=== PATIENT | male | born 2000 | race African-American/Black ===

== ENCOUNTER 2021-03-02 12:17 | Emergency (ER) | payer SELFPAY ==
--- NOTE | 2021-03-02 13:06 | EDPHYS ---
Physician Documentation [facility] Name: Hipolito Chase Age: 20 yrs Sex: Male : 2000 Arrival Date: 03/02/2021 Time: 12:24 Bed Waiting Private MD: ED Physician Shahid Vazquez HPI: 03/02 17:01 This 20 yrs old Black Male presents to ER via Ambulatory with complaints of Jaw kb Swelling. 17:04 The patient presents with pain, redness, swelling. The problem is located in the lower kb left first molar (#19). Onset: The symptoms/episode began/occurred yesterday. Duration: The symptoms are continuous. Modifying factors: The symptoms are alleviated by nothing, the symptoms are aggravated by nothing. Associated signs and symptoms: Pertinent positives: pain, redness in area, swelling. Severity of symptoms: At their worst the symptoms were moderate, in the emergency department the symptoms are unchanged. The patient has not experienced similar symptoms in the past. The patient has not recently seen a physician. Historical: - Allergies: 13:07 No Known Allergies; kg - Home Meds: 13:07 None [Active]; kg - PMHx: 13:07 None; kg - PSHx: 13:07 None; kg - Immunization history:: Adult Immunizations not up to date, Client reports having NOT received the Covid vaccine. - Social history:: Smoking status: Patient denies any tobacco usage or history of. Patient uses street drugs, marijuana. ROS: 17:02 Constitutional: Negative for fever, chills, and weight loss. kb 17:02 ENT: Positive for dental pain, swelling to lower left jaw. 17:02 All other systems are negative. Exam: 17:03 Constitutional: This is a well developed, well nourished patient who is awake, alert, kb and in no acute distress. Head/Face: Normocephalic, atraumatic. Respiratory: Respirations even and unlabored. No increased work of breathing, no retractions or nasal flaring. Skin: Warm, dry with normal turgor. Normal color. MS/ Extremity: Pulses equal, no cyanosis. Neurovascular intact. Full, normal range of motion. Neuro: Awake and alert, GCS 15, oriented to person, place, time, and situation. Moves all extremities. Normal gait. Psych: Awake, alert, with orientation to person, place and time. Behavior, mood, and affect are within normal limits. 17:03 ENT: Dental exam: cellulitis, that is mild, specifically in the lower left first molar, gum swelling, that is mild, specifically in the lower left first molar (#19), pain, that is moderate, specifically in the lower left first molar (#19). Vital Signs: 13:03 BP 140 / 99; Pulse 71; Resp 20; Temp 98.8(TE); Pulse Ox 96% on R/A; Weight 63.5 kg (R); kg Height 5 ft. 2 in. (157.48 cm) (R); Pain 3/10; 13:03 Body Mass Index 25.61 (63.50 kg, 157.48 cm) kg MDM: 13:05 Patient medically screened. kb 17:01 Data reviewed: vital signs, nurses notes. Data interpreted: Pulse oximetry: on room air kb is 96 %. Interpretation: normal. Counseling: I had a detailed discussion with the patient and/or guardian regarding: the historical points, exam findings, and any diagnostic results supporting the discharge/admit diagnosis, the need for outpatient follow up, a dentist, to return to the emergency department if symptoms worsen or persist or if there are any questions or concerns that arise at home. Administered Medications: No medications were administered Disposition: 03/03 08:26 Co-signature as Attending Physician, Shahid Vazquez MD I agree with the assessment and niko plan of care. Disposition Summary: 03/02/21 13:06 Discharge Ordered Location: Home kb Condition: Stable kb Diagnosis - Periapical abscess without sinus kb Followup: kb - With: Emergency Department - When: As needed - Reason: Worsening of condition Followup: kb - With: Private Physician - When: 2 - 3 days - Reason: Recheck today's complaints, Continuance of care, Re-evaluation by your physician Discharge Instructions: - Discharge Summary Sheet kb - Dental Pain, [id number] kb - Dental Abscess, [id number] kb Forms: - Medication Reconciliation Form kb - Thank You Letter kb - Antibiotic Education kb - Prescription Opioid Use kb Prescriptions: - Augmentin 875-125 mg Oral Tablet - take 1 tablet by ORAL route every 12 hours for 10 days; 20 tablet; Refills: 0, kb Product Selection Permitted Signatures: Apolonia Perez, STEEL GRINDER-C STEEL GRINDER-Ckb Shahid Vazquez MD MD cha Graham, Kristen, RN RN kg
--- NOTE | 2021-03-02 13:34 | ER ---
Nurse's Notes [facility] Name: Hipolito Chase Age: 20 yrs Sex: Male : 2000 Arrival Date: 03/02/2021 Time: 12:24 Bed Waiting Private MD: Diagnosis: Periapical abscess without sinus Presentation: 03/02 13:03 Chief complaint: Patient states: Left Lower jaw third bottom tooth pain. Coronavirus kg screen: Vaccine status: Patient reports being unvaccinated. Ebola Screen: Patient negative for fever greater than or equal to 101.5 degrees Fahrenheit, and additional compatible Ebola Virus Disease symptoms Patient denies exposure to infectious person. Patient denies travel to an Ebola-affected area in the 21 days before illness onset. Initial Sepsis Screen: Does the patient meet any 2 criteria? No. Patient's initial sepsis screen is negative. Does the patient have a suspected source of infection? No. Patient's initial sepsis screen is negative. Risk Assessment: Do you want to hurt yourself or someone else? Patient reports no desire to harm self or others. Onset of symptoms was March 01, 2021. 13:03 Method Of Arrival: Ambulatory kg 13:03 Acuity: MATTHEW 4 kg Triage Assessment: 13:07 General: Appears in no apparent distress. Behavior is calm, cooperative, appropriate kg for age, quiet. Pain: Complains of pain in lower left first molar. Historical: - Allergies: 13:07 No Known Allergies; kg - Home Meds: 13:07 None [Active]; kg - PMHx: 13:07 None; kg - PSHx: 13:07 None; kg - Immunization history:: Adult Immunizations not up to date, Client reports having NOT received the Covid vaccine. - Social history:: Smoking status: Patient denies any tobacco usage or history of. Patient uses street drugs, marijuana. Screenin:08 Abuse screen: Denies threats or abuse. Denies injuries from another. Nutritional kg screening: No deficits noted. Tuberculosis screening: No symptoms or risk factors identified. Fall Risk None identified. Vital Signs: 13:03 BP 140 / 99; Pulse 71; Resp 20; Temp 98.8(TE); Pulse Ox 96% on R/A; Weight 63.5 kg (R); kg Height 5 ft. 2 in. (157.48 cm) (R); Pain 09/07; 13:03 Body Mass Index 25.61 (63.50 kg, 157.48 cm) kg ED Course: 12:24 Patient arrived in ED. mr 13:05 [facility]. kb 13:05 Shahid Vazquez MD is Attending Physician. kb 13:07 Triage completed. kg 13:07 Arm band placed on right wrist. kg 13:08 Patient has correct armband on for positive identification. kg 13:33 No provider procedures requiring assistance completed. Patient did not have IV access kg during this emergency room visit. Administered Medications: No medications were administered Outcome: 13:06 Discharge ordered by . kb 13:33 Discharged to home ambulatory. kg 13:33 Condition: good 13:33 Discharge instructions given to patient, Instructed on discharge instructions, follow up and referral plans. Demonstrated understanding of instructions, follow-up care, medications, Prescriptions given X 1. 13:34 Patient left the ED. kg Signatures: Apolonia Perez FNP-C FNP-Rosalba Chavez mr StephensSharon, RN RN kg
[2021-03-02 13:40] VITALS: BP 140/99; TEMP 98.8; O2SAT 96
== END 2021-03-02 13:34 | disposition home or self-care (01) ==
LOC: ER 12:17
DX: K04.7 Periapical abscess without sinus (principal)
CPT/HCPCS: 99282

== ENCOUNTER 2021-08-25 20:36 | Emergency (ER) | payer SELFPAY ==
--- NOTE | 2021-08-25 20:53 | ER ---
Nurse's Notes [facility] Name: Hipolito Chase Age: 21 yrs Sex: Male : 2000 Arrival Date: 08/25/2021 Time: 20:38 Bed 20 Private MD: Diagnosis: Unspecified sexually transmitted disease Presentation: 08/25 20:43 Chief complaint: Patient states: "On [place] I basically had too much fun. Im burning when ab2 I pee and I will wake up in the middle of the night to it burning." Pt states he does have white/green/yellow discharge. Coronavirus screen: Vaccine status: Patient reports being unvaccinated. Client denies travel out of the [place] in the last 14 days. At this time, the client does not indicate any symptoms associated with coronavirus-19. Ebola Screen: Patient negative for fever greater than or equal to 101.5 degrees Fahrenheit, and additional compatible Ebola Virus Disease symptoms Patient denies exposure to infectious person. Patient denies travel to an Ebola-affected area in the 21 days before illness onset. No symptoms or risks identified at this time. Initial Sepsis Screen: Does the patient meet any 2 criteria? No. Patient's initial sepsis screen is negative. Does the patient have a suspected source of infection? No. Patient's initial sepsis screen is negative. Risk Assessment: Do you want to hurt yourself or someone else? Patient reports no desire to harm self or others. Onset of symptoms is unknown. 20:43 Method Of Arrival: Ambulatory ab2 20:43 Acuity: MATTHEW 4 ab2 Triage Assessment: 20:49 General: Appears in no apparent distress. comfortable, Behavior is calm, cooperative, ab2 appropriate for age. Pain: Denies pain. Historical: - Allergies: 20:48 No Known Allergies; ab2 - Home Meds: 20:48 None [Active]; ab2 - PMHx: 20:48 None; ab2 - PSHx: 20:48 None; ab2 - Immunization history:: Adult Immunizations up to date. - Social history:: Smoking status: Patient denies any tobacco usage or history of. Patient uses street drugs, marijuana. Screenin:49 Abuse screen: Denies threats or abuse. Denies injuries from another. Nutritional ab2 screening: No deficits noted. Tuberculosis screening: No symptoms or risk factors identified. Fall Risk None identified. Vital Signs: 20:43 BP 148 / 92; Pulse 77; Resp 16; Temp 98.6(TE); Pulse Ox 100% ; Weight 63.5 kg; Height 5 ab2 ft. 3 in. (160.02 cm); Pain 0/10; 21:17 BP 132 / 73 LA Sitting (auto/reg); Pulse 66 MON; Resp 16 S; Temp 97.9; Pulse Ox 100% on sv1 R/A; Pain 0/10; 20:43 Body Mass Index 24.80 (63.50 kg, 160.02 cm) ab2 ED Course: 20:38 Patient arrived in ED. ja2 20:40 Apolonia Perez [facility]C [facility]. kb 20:40 Dionisio Cordova MD is Attending Physician. kb 20:48 Triage completed. ab2 20:49 Arm band placed on right wrist. ab2 20:56 Timmy Nolasco RN is Primary Nurse. sv1 21:17 Patient has correct armband on for positive identification. Bed in low position. Call sv1 light in reach. Side rails up X 1. 21:17 No provider procedures requiring assistance completed. Patient did not have IV access sv1 during this emergency room visit. Administered Medications: 21:00 Drug: Rocephin (cefTRIAXone) 500 mg Route: IM; Site: left deltoid; sv1 21:21 Follow up: Response: No adverse reaction sv1 21:00 Drug: Zithromax (azithromycin) 1 grams Route: PO; sv1 21:20 Follow up: Response: No adverse reaction sv1 Outcome: 20:52 Discharge ordered by . kb 21:17 Discharged to home sv1 21:17 Condition: stable 21:17 Instructed on discharge instructions, follow up and referral plans. 21:22 Patient left the ED. sv1 Signatures: Apolonia Perez FNP-C FNP-Pau Gudino ja2 Timmy Nolasco, ANDRESSA RN sv1 Matheus Nunes ab2
--- NOTE | 2021-08-25 20:53 | EDPHYS ---
Physician Documentation [facility] Name: Hipolito Chase Age: 21 yrs Sex: Male : 2000 Arrival Date: 08/25/2021 Time: 20:38 Bed 20 Private MD: ED Physician Dionisio Cordova HPI: 08/25 20:49 This 21 yrs old Black Male presents to ER via Ambulatory with complaints of STD kb Exposure. 20:49 The patient presents with a possible STD exposure, symptoms include dysuria, green kb penile discharge. Onset: The symptoms/episode began/occurred 2 month(s) ago. Modifying factors: The symptoms are alleviated by nothing, the symptoms are aggravated by urinating. Associated signs and symptoms: Pertinent positives: dysuria, Pertinent negatives: abdominal pain, constipation, diarrhea, fever, hematuria, nausea, vomiting. Severity of symptoms: At their worst the symptoms were moderate, in the emergency department the symptoms are unchanged. The patient has not experienced similar symptoms in the past. The patient has not recently seen a physician. Pt reports burning with urination and penile discharge since the beginning of July. Reports unprotected sex during New Years Sue. . Historical: - Allergies: 20:48 No Known Allergies; ab2 - Home Meds: 20:48 None [Active]; ab2 - PMHx: 20:48 None; ab2 - PSHx: 20:48 None; ab2 - Immunization history:: Adult Immunizations up to date. - Social history:: Smoking status: Patient denies any tobacco usage or history of. Patient uses street drugs, marijuana. ROS: 20:49 Constitutional: Negative for fever, chills, and weight loss. kb 20:49 : Positive for burning with urination, penile discharge. 20:49 All other systems are negative. Exam: 20:49 Constitutional: This is a well developed, well nourished patient who is awake, alert, kb and in no acute distress. Head/Face: Normocephalic, atraumatic. ENT: Moist Mucous membranes Respiratory: Respirations even and unlabored. No increased work of breathing. Talking in full sentences Skin: Warm, dry with normal turgor. Normal color. MS/ Extremity: Pulses equal, no cyanosis. Neurovascular intact. Full, normal range of motion. Neuro: Awake and alert, GCS 15, oriented to person, place, time, and situation. Moves all extremities. Normal gait. Psych: Awake, alert, with orientation to person, place and time. Behavior, mood, and affect are within normal limits. Vital Signs: 20:43 BP 148 / 92; Pulse 77; Resp 16; Temp 98.6(TE); Pulse Ox 100% ; Weight 63.5 kg; Height 5 ab2 ft. 3 in. (160.02 cm); Pain 0/10; 21:17 BP 132 / 73 LA Sitting (auto/reg); Pulse 66 MON; Resp 16 S; Temp 97.9; Pulse Ox 100% on sv1 R/A; Pain 0/10; 20:43 Body Mass Index 24.80 (63.50 kg, 160.02 cm) ab2 MDM: 20:47 Patient medically screened. kb 20:47 Data reviewed: vital signs, nurses notes. Data interpreted: Pulse oximetry: on room air kb is 100 %. Interpretation: normal. Counseling: I had a detailed discussion with the patient and/or guardian regarding: the historical points, exam findings, and any diagnostic results supporting the discharge/admit diagnosis, the need for outpatient follow up, a family practitioner, to return to the emergency department if symptoms worsen or persist or if there are any questions or concerns that arise at home. Administered Medications: 21:00 Drug: Rocephin (cefTRIAXone) 500 mg Route: IM; Site: left deltoid; sv1 21:21 Follow up: Response: No adverse reaction sv1 21:00 Drug: Zithromax (azithromycin) 1 grams Route: PO; sv1 21:20 Follow up: Response: No adverse reaction sv1 Disposition: 08/26 02:16 Co-signature as Attending Physician, Dionisio Codrova MD. [email or web address] Disposition Summary: 08/25/21 20:52 Discharge Ordered Location: Home kb Condition: Stable kb Diagnosis - Unspecified sexually transmitted disease kb Followup: kb - With: Emergency Department - When: As needed - Reason: Worsening of condition Followup: kb - With: Private Physician - When: 2 - 3 days - Reason: Recheck today's complaints, Continuance of care, Re-evaluation by your physician Discharge Instructions: - Discharge Summary Sheet kb - Preventing Sexually Transmitted Infections, Adult kb Forms: - Medication Reconciliation Form kb - Thank You Letter kb - Antibiotic Education kb - Prescription Opioid Use kb Signatures: Apolonia Perez, ELECTRIC SWITCH TESTER-C ELECTRIC SWITCH TESTER-Ckb Dionisio Cordova MD MD [id number] Timmy Nolasco RN RN sv1 Matheus Nunes2
[2021-08-25] MEDS ORDERED: CEFTRIAXONE 500 MG/VIAL ONE (21:03)
[2021-08-25] MEDS ORDERED: AZITHROMYCIN 250 MG TAB ONE (21:04)
[2021-08-25] MEDS ORDERED: LIDOCAINE 1% MPF 2 ML AMPULE ONE (21:04)
[2021-08-25 21:57] VITALS: O2SAT 100
[2021-08-25 21:58] VITALS: BP 132/73; TEMP 97.9
== END 2021-08-25 21:22 | disposition home or self-care (01) ==
LOC: ER 20:36
DX: A64 Unspecified sexually transmitted disease (principal)
CPT/HCPCS: 96372; 99283; J0696